=== PATIENT | male | born 1945 | race Caucasian/White ===

== ENCOUNTER 2016-04-07 01:05 | Inpatient (IN) | payer OTHER ==
[~2016-04-07 01:05] MED LIST: ALDACTONE 25MG25 MG PO; AMARYL 2MG TABLE2 MG PO; ASPIR 8181 MG PEG; ATIVAN0.5 MG PEG; COMPAZINE 10MG10 MG PEG; COREG 3.125M3.125 MG PO; IMDUR ER TAB 3030 MG PO; LACTULOSE20 GM/30 M PEG; LANOXIN TAB0.125 MG PO; NEURONTIN 300300 MG PEG; OXYCODONE HCL20 MG PEG; SILTUSSIN DM C473 ML PO; SPIRONOLACTONE25 MG PO; TOPROL XL50 MG PEG; ZESTRIL/PRINIVI10 MG PO; ZESTRIL10 MG PO
[2016-04-07 06:11] LABS: HEMOGLOBIN 10.7 gm/dl (14.0-17.5); RED BLOOD COUNT 3.58 M/UL (4.20-5.50); WHITE BLOOD COUNT 6.8 K/UL (4.5-11.0)
[2016-04-07 06:24] LABS: BUN/CREATININE RATIO 29 (0-10)
[2016-04-08 04:24] LABS: HEMOGLOBIN 10.6 gm/dl (14.0-17.5); RED BLOOD COUNT 3.59 M/UL (4.20-5.50)
[2016-04-08 04:25] LABS: WHITE BLOOD COUNT 4.2 K/UL (4.5-11.0)
[2016-04-09 04:48] LABS: RED BLOOD COUNT 3.1 M/UL (4.20-5.50); WHITE BLOOD COUNT 2.9 K/UL (4.5-11.0)
[2016-04-10 04:40] LABS: RED BLOOD COUNT 3.1 M/UL (4.20-5.50); WHITE BLOOD COUNT 2.5 K/UL (4.5-11.0)
--- NOTE | 2016-04-10 23:24 | NUR ---
04/10/161944 PT DISCUSSING HIS "DEMOCRAT" AND WANTED TO KNOW A GOOD PLACE TO EAT IN [place]. I EXPLAINED TO HIM THAT HE PROBABLY SHOULD NOT GO OUT TO EAT R/T HIS SWALLOWING DIFFICULTIES. THAT WITH THOSE DIFFICULITIES GOING OUT TO EAT HE COULD ASPIRATE EVERYTHING HE EATS. THAT WAS THE REASON WE WERE DOING TUBE FEEDING. I ALSO EXPLAINED TO HIM THAT AFTER HAVING BEEN NOT EATING ANYTHING FOR SEVERAL DAYS THAT EATING OUT OR A BIG MEAL WOULD PROBABLY CAUSE HIM TO GET VERY NAUSEAED. MY SUGGESTION WAS TO PUT THE "DEMOCRAT" OFF FOR A COUPLE OF WEEKS AND SEE HOW HE FEELS AND WHAT THE DR.'S TELL HIM. HE CALLED HIS FRIENDS THEN AND EXPLAINED THE SITUATION TO THEM I HAD EXPLAINED IT TO HIM.
--- NOTE | 2016-04-12 03:15 | NUR ---
04/10/16 PATIENT REPEATEDLY ENCOURAGE TO TURN. PATIENT EDUCATED ON THE BENEFITS OF TURNING. PATIENT STATES, "I CAN WIGGLE MYSELF AROUND WHEN I WANT TO, IM COMFORTABLE." PATIENT VERBALIZES UNDERSTANDING.
[2016-04-12 04:17] LABS: HEMOGLOBIN 8.8 gm/dl (14.0-17.5); RED BLOOD COUNT 3.02 M/UL (4.20-5.50)
[2016-04-12 04:19] LABS: WHITE BLOOD COUNT 1.7 K/UL (4.5-11.0)
[2016-04-12 04:27] LABS: BUN/CREATININE RATIO 34 (0-10)
[2016-04-12] MEDS ORDERED: JEVITY 1.2 CA1000 ML PEG (12:36)
[2016-04-12] MEDS ORDERED: LANOXIN125 MCG PEG (12:37)
[2016-04-12] MEDS ORDERED: DIFLUCAN100 MG PEG (12:39)
[2016-04-12] MEDS ORDERED: AUGMENTIN400 MG/5 M PEG (12:49)
== END 2016-04-12 14:16 | disposition home or self-care (01) | DRG 177 ==
LOC: ER1 01:05 → PROG CARE 06:09 → ZEROF 06:09 → PROG CARE 23:00
PROVIDERS: Internal Medicine Infectious Disease; Student in an Organized Health Care Education/Training Program; ADMIT Family Medicine
DX: J69.0 Pneumonitis due to inhalation of food and vomit (principal); G93.40 Encephalopathy, unspecified; E43 Unspecified severe protein-calorie malnutrition; N17.9 Acute kidney failure, unspecified; I13.0 Hypertensive heart and chronic kidney disease with heart failure and stage 1 through stage 4 chronic kidney disease, or unspecified chronic kidney disease; I50.22 Chronic systolic (congestive) heart failure; I42.9 Cardiomyopathy, unspecified; E87.0 Hyperosmolality and hypernatremia; T76.11XA Adult physical abuse, suspected, initial encounter; D61.818 Other pancytopenia; Z68.1 Body mass index [BMI] 19.9 or less, adult; N18.3 Chronic kidney disease, stage 3 (moderate); T36.0X5A Adverse effect of penicillins, initial encounter; R19.7 Diarrhea, unspecified; L89.152 Pressure ulcer of sacral region, stage 2; I48.2 Chronic atrial fibrillation; R13.12 Dysphagia, oropharyngeal phase; N18.9 Chronic kidney disease, unspecified; J44.9 Chronic obstructive pulmonary disease, unspecified; M79.605 Pain in left leg; Z93.1 Gastrostomy status; K74.60 Unspecified cirrhosis of liver; G89.4 Chronic pain syndrome; Z91.81 History of falling; D69.6 Thrombocytopenia, unspecified; Y92.230 Patient room in hospital as the place of occurrence of the external cause; B37.9 Candidiasis, unspecified; R13.10 Dysphagia, unspecified
CPT/HCPCS: 36415; 36600; 71010; 71250; 74230; 80048; 80053; 80162; 80202; 80307; 82140; 82550; 82553; 82803; 82962; 83036; 83605; 83690; 83735; 83874; 83880; 84439; 84443; 84484; 85025; 85610; 85730; 87040; 87070; 87205; 92610; 92611-GN; 93005; 94640; 94664; 96361; 96365; 96372; 96375; 96376; 99291; J1335; J1644; J1815; J1956; J2543; J2930; J3370; J7030; J7050

== ENCOUNTER 2016-04-17 13:03 | Emergency (ER) | payer OTHER ==
[~2016-04-17 13:03] MED LIST changes: +AUGMENTIN400 MG/5 M PEG; +DIFLUCAN100 MG PEG; +JEVITY 1.2 CA1000 ML PEG; +LANOXIN125 MCG PEG
[2016-04-17 15:31] LABS: HEMOGLOBIN 9.7 gm/dl (14.0-17.5); RED BLOOD COUNT 3.26 M/UL (4.20-5.50); WHITE BLOOD COUNT 2.5 K/UL (4.5-11.0)
== END 2016-04-18 00:20 | disposition home or self-care (01) ==
LOC: ER1 13:03
PROVIDERS: Emergency Medicine
DX: R05 Cough (principal); E87.5 Hyperkalemia
CPT/HCPCS: 36415; 71010; 80048; 80053; 82550; 82553; 82962; 83605; 83874; 84484; 85025; 85610; 85730; 87040; 96374; 96375; 99285; J0610; J1815; J1940; J7030